=== PATIENT | male | born 1960 | race American Indian/Alaskan Native ===

== ENCOUNTER 2018-04-29 12:06 | Emergency (ER) | payer OTHER ==
[2018-04-29 12:09] VITALS: BMI 21.9
[2018-04-29] MEDS ORDERED: Sodium Chloride 0.9% 1,000 ML IV ONE (12:10)
[2018-04-29 12:19] LABS: BASO % 0.6 % (0.0-2.0); EOS % 0.9 % (0.0-4.0); HEMOGLOBIN 10.7 g/dL (12.0-18.0); LYMPH # 1.2 K/uL (1.0-4.3); LYMPH % 21.5 % (20.0-40.0); MEAN CELL VOLUME 94.3 fL (80.0-94.0); MEAN CORPUSCULAR HEMOGLOBIN 32.4 pg (27.0-31.0); MEAN CORPUSCULAR HGB CONC 34.4 g/dL (33.0-37.0); MONO # 0.4 K/uL (0.0-0.8); MONO % 6.3 % (0.0-10.0); NEUT % 70.7 % (50.0-75.0); RBC 3.31 Mil/uL (4.40-5.90); RED CELL DISTRIBUTION WIDTH 13.9 % (11.5-14.5); WHITE BLOOD COUNT 5.7 K/uL (4.8-10.8)
[2018-04-29] MEDS ORDERED: Morphine 4 MG/ML VIAL ONE ×2 (12:20→14:45)
--- NOTE | 2018-04-29 12:33 | C.PDOC ---
History Of Present Illness 57 y/o male brought in by ambulance for evaluation of right rib pain s/p fall that occurred just prior to arrival. 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 Patient was walking into a truck with a susanne when the truck mistakenly pulled out, causing patient to fall approximately 4.5 feet, landing on the right side of his trunk on top of the plate. He is now complaining of right-sided pain ( including the right side of neck) and difficulty breathing. Otherwise he denies any head trauma, LOC, dizziness, weakness, numbness, or other injuries. - HPI Time Seen by Provider: 04/29/18 12:09 Chief Complaint (Nursing): Trauma History Per: Patient History/Exam Limitations: no limitations Injury Occurred (Timing): Just Before Arrival Additional History Per: EMS - Fall Fall:Prior To Injury: Slipped (fell from loading dock) Past Medical History Reviewed: Historical Data, Nursing Documentation, Vital Signs Vital Signs: Last Vital Signs Temp 98.3 F 04/29/18 14:44 Pulse 65 04/29/18 14:44 Resp 18 04/29/18 14:44 BP 165/89 H 04/29/18 14:44 Pulse Ox 98 04/29/18 15:07 - Medical History PMH: No Chronic Diseases Surgical History: No Surg Hx Family History: States: No Known Family Hx - Social History Hx Tobacco Use: Yes Hx Alcohol Use: No Hx Substance Use: No - Immunization History Hx Tetanus Toxoid Vaccination: No Hx Influenza Vaccination: No Hx Pneumococcal Vaccination: No Review Of Systems Except As Marked, All Systems Reviewed And Found Negative. Constitutional: Negative for: Fever Eyes: Negative for: Vision Change Cardiovascular: Positive for: Other (right-sided rib pain). Negative for: Palpitations Respiratory: Positive for: Shortness of Breath Gastrointestinal: Positive for: Abdominal Pain (right flank pain). Negative for : Nausea, Vomiting Musculoskeletal: Positive for: Neck Pain (right-sided) Skin: Negative for: Lesions Neurological: Negative for: Weakness, Numbness, Incoordination, Change in Speech , Headache, Dizziness, Other (LOC) Physical Exam - Physical Exam Appears: Non-toxic, In Acute Distress (Visibly in pain) Skin: Warm, Dry, No Rash Head: Normacephalic, No Swelling, No Laceration Eye(s): bilateral: Normal Inspection, PERRL, EOMI Oral Mucosa: Moist Neck: No Midline Cervical Tenderness, Paracervical Tenderness (right-sided), Supple Chest: Symmetrical, Tenderness (to right lower ribs) Cardiovascular: Rhythm Regular, No Murmur Respiratory: Normal Breath Sounds, No Rales, No Rhonchi, No Wheezing Gastrointestinal/Abdominal: Soft, No Tenderness, No Distention Back: Normal Inspection (with no ecchymosis, abrasions, or swelling), No Vertebral Tenderness, No Decreased ROM, Paraspinal Tenderness (along the entire right side of back) Extremity: Right: Other (Bruising and abrasions over the right knee), Bilateral : Normal Color And Temperature, Normal ROM Pulses: Left Radial: Normal, Right Radial: Normal, Left Dorsalis Pedis: Normal, Right Dorsalis Pedis: Normal Neurological/Psych: Oriented x3, Normal Speech, Normal Cranial Nerves, Normal Motor, Normal Sensation, Other (No focal deficits) ED Course And Treatment - Laboratory Results Result Diagrams: 04/29/18 12:16 04/29/18 12:16 O2 Sat by Pulse Oximetry: 98 (RA) Pulse Ox Interpretation: Normal - Radiology CXR: Interpreted by Me, Viewed By Fl CXR Interpretation: Yes: No Acute Disease. No: Pnemothorax - CT Scan/US Head CT Other Rad Studies (CT/US): Read By Radiologist, Radiology Report Reviewed CT/US Interpretation: FINDINGS: HEMORRHAGE: No intracranial hemorrhage. BRAIN : No mass effect or edema. No atrophy or chronic microvascular ischemic changes. VENTRICLES: Unremarkable. No hydrocephalus. CALVARIUM: Unremarkable. PARANASAL SINUSES: Chronic ethmoid sinusitis. Right maxillary antrochoanal polyp. MASTOID AIR CELLS: Unremarkable as visualized. No inflammatory changes. OTHER FINDINGS: None. IMPRESSION: No intracranial hemorrhage. Incidental right antrochoanal polyp and chronic ethmoid sinusitis. C-spine CT Other Rad Studies (CT/US): Read By Radiologist, Radiology Report Reviewed CT/US Interpretation: FINDINGS: VERTEBRAE: The vertebral bodies are maintained in height. Normal alignment is maintained. The atlantoaxial articulation and odontoid process are intact. DISCS/SPINAL CANAL/NEURAL FORAMINA: Mild narrowing of the C4-5 intervertebral disc space with minimal endplate sclerosis consistent with degenerative disc disease. Remaining intervertebral discs are maintained in height. PARASPINAL SOFT TISSUES: Unremarkable. OTHER FINDINGS: None. IMPRESSION: No fracture/ dislocation. Mild degenerative disc disease at C4-5. CT abd/chest/pelvis Other Rad Studies (CT/US): Read By Radiologist, Radiology Report Reviewed CT/US Interpretation: FINDINGS: CT CHEST WITH CONTRAST: LUNGS: Minimal centrilobular pulmonary emphysema. Dependent atelectasis at lung bases. No pulmonary infiltrate. No pulmonary mass. MEDIASTINUM: Unremarkable. Normal caliber aorta and pulmonary arterial trunk. No aortic dissection. Normal size heart. LYMPH NODES: Unremarkable. PLEURA: Unremarkable. No pneumothorax. No pleural fluid. BONES: Nondisplaced or minimally displaced fractures right 3rd through 8th ribs laterally. OTHER FINDINGS: None. CT ABDOMEN AND PELVIS: LIVER: Unremarkable. No gross lesion or ductal dilatation. GALLBLADDER AND BILE DUCTS: Unremarkable. PANCREAS: Unremarkable. No gross lesion or ductal dilatation. SPLEEN: Unremarkable. ADRENALS: Unremarkable. No mass. KIDNEYS AND URETERS: Unremarkable. No hydronephrosis. No solid mass. VASCULATURE: Unremarkable. No aortic aneurysm. BOWEL: Unremarkable. No obstruction. No gross mural thickening. APPENDIX: Not identified. PERITONEUM: Unremarkable. No free fluid. No free air. LYMPH NODES: Unremarkable. No enlarged lymph nodes. BLADDER: Unremarkable. REPRODUCTIVE: Normal prostate. BONES: No acute fracture. OTHER FINDINGS: None. IMPRESSION: Multiple right rib fractures, including the 3rd through 8th ribs laterally. No evidence of flail chest. No pneumothorax or hemothorax. No intra-abdominal visceral injury. Medical Decision Making Medical Decision Making: Impression: Right-sided pain s/p trauma Plan: * CMP * Urine drug screen * CBC * PTT/PT * Urinalysis * Chest x-ray * X-ray right knee * CT Head w/o contrast * CT C-spine w/o contrast * CT Chest/Abd/Pelvis with IV contrast * IV fluids * IV Morphine, 4 mg Progress/Updates: Disposition Counseled Patient/Family Regarding: Studies Performed, Diagnosis, Need For Followup, Rx Given - Disposition Referrals: [facility] [Outside] Disposition: HOME/ ROUTINE Disposition Time: 15:20 Condition: STABLE Additional Instructions: Follow up with your doctor or our clinic. Take pain medications as needed. Don't work, nor travel while taking Percocet. Us the incentive spirometry as indicated. Prescriptions: Ibuprofen [Motrin] 1 tab PO TID PRN #30 tab PRN Reason: Pain oxyCODONE/Acetaminophen [Percocet 5/325 mg Tab] 1 tab PO QID PRN #20 tab PRN Reason: Pain Instructions: Rib Fracture (DC) Forms: [facility] (Sinhala), General Discharge Instructions, Work Excuse - POA Present On Arrival: None - Clinical Impression Clinical Impression: Multiple fractures of ribs of right side - Scribe Statement The provider has reviewed the documentation as recorded by the Scribe (Frieda Irving) Provider Attestation: All medical record entries made by the Scribe were at my direction and personally dictated by me. I have reviewed the chart and agree that the record accurately reflects my personal performance of the history, physical exam, medical decision making, and the department course for this patient. I have also personally directed, reviewed, and agree with the discharge instructions and disposition.
[2018-04-29 12:34] LABS: ALB/GLOB RATIO 1.5 (1.0-2.1); ALBUMIN 4.5 g/dL (3.5-5.0); ALT/SGPT 23 U/L (21-72); AST/SGOT 28 U/L (17-59); BLOOD UREA NITROGEN 18 mg/dL (9-20); CALCIUM 9.3 mg/dl (8.6-10.4); GFR AFRICAN-AMERICAN > 60; GFR NON-AFRICAN AMERICAN > 60
--- NOTE | 2018-04-29 12:51 | RAD ---
Date of service: 04/29/2018 PROCEDURE: CHEST RADIOGRAPH, 1 VIEW HISTORY: trauma COMPARISON: None available. FINDINGS: LUNGS: The lungs are well inflated and clear. PLEURA: No pneumothorax or pleural fluid seen. CARDIOVASCULAR: There is mild cardiomegaly. OSSEOUS STRUCTURES: No significant abnormalities. VISUALIZED UPPER ABDOMEN: Normal. OTHER FINDINGS: None. IMPRESSION: No acute findings.
[2018-04-29] MEDS ORDERED: Iodixanol 320 MG/ML 100 ML BOTTLE IV ONE (13:19)
--- NOTE | 2018-04-29 14:24 | CT ---
Date of service: 04/29/2018 PROCEDURE: CT HEAD WITHOUT CONTRAST. HISTORY: R/O Bleed COMPARISON: None available. TECHNIQUE: Axial computed tomography images were obtained through the head/brain without intravenous contrast. Radiation dose: Total exam DLP = 871.04 mGy-cm. This CT exam was performed using one or more of the following dose reduction techniques: Automated exposure control, adjustment of the mA and/or kV according to patient size, and/or use of iterative reconstruction technique. FINDINGS: HEMORRHAGE: No intracranial hemorrhage. BRAIN: No mass effect or edema. No atrophy or chronic microvascular ischemic changes. VENTRICLES: Unremarkable. No hydrocephalus. CALVARIUM: Unremarkable. PARANASAL SINUSES: Chronic ethmoid sinusitis. Right maxillary antrochoanal polyp. MASTOID AIR CELLS: Unremarkable as visualized. No inflammatory changes. OTHER FINDINGS: None. IMPRESSION: No intracranial hemorrhage. Incidental right antrochoanal polyp and chronic ethmoid sinusitis.
--- NOTE | 2018-04-29 14:28 | CT ---
Date of service: 04/29/2018 PROCEDURE: CT Cervical Spine without contrast HISTORY: trauma COMPARISON: None available. TECHNIQUE: Axial computed tomography images were obtained of the cervical spine without the use of intravenous contrast. Coronal and sagittal reformatted images were created and reviewed. Radiation dose: Total exam DLP = 550.31 mGy-cm. This CT exam was performed using one or more of the following dose reduction techniques: Automated exposure control, adjustment of the mA and/or kV according to patient size, and/or use of iterative reconstruction technique. FINDINGS: VERTEBRAE: The vertebral bodies are maintained in height. Normal alignment is maintained. The atlantoaxial articulation and odontoid process are intact. DISCS/SPINAL CANAL/NEURAL FORAMINA: Mild narrowing of the C4-5 intervertebral disc space with minimal endplate sclerosis consistent with degenerative disc disease. Remaining intervertebral discs are maintained in height. PARASPINAL SOFT TISSUES: Unremarkable. OTHER FINDINGS: None. IMPRESSION: No fracture/ dislocation. Mild degenerative disc disease at C4-5.
[2018-04-29 14:45] VITALS: TEMP 98.3
[2018-04-29 14:48] LABS: SQUAMOUS EPITHIAL 1 /hpf (0-5); URINE BILIRUBIN NEGATIVE (NEGATIVE); URINE BLOOD NEGATIVE (NEGATIVE); URINE CLARITY Clear (Clear); URINE COLOR Yellow (YELLOW); URINE GLUCOSE (UA) NORMAL (Normal); URINE LEUKOCYTE ESTERASE NEG Leu/uL (Negative); URINE PROTEIN NEGATIVE (NEGATIVE)
[2018-04-29 14:54] VITALS: O2SAT 98
--- NOTE | 2018-04-29 15:05 | CT ---
Date of service: 04/29/2018 PROCEDURE: CT Chest, Abdomen and Pelvis with intravenous contrast HISTORY: fall from 5 feet COMPARISON: None available. TECHNIQUE: IV dose administered: 100 mL Visipaque 320 Radiation dose: Total exam DLP = 498.58 mGy-cm. This CT exam was performed using one or more of the following dose reduction techniques: Automated exposure control, adjustment of the mA and/or kV according to patient size, and/or use of iterative reconstruction technique. FINDINGS: CT CHEST WITH CONTRAST: LUNGS: Minimal centrilobular pulmonary emphysema. Dependent atelectasis at lung bases. No pulmonary infiltrate. No pulmonary mass. MEDIASTINUM: Unremarkable. Normal caliber aorta and pulmonary arterial trunk. No aortic dissection. Normal size heart. LYMPH NODES: Unremarkable. PLEURA: Unremarkable. No pneumothorax. No pleural fluid. BONES: Nondisplaced or minimally displaced fractures right 3rd through 8th ribs laterally. OTHER FINDINGS: None. CT ABDOMEN AND PELVIS: LIVER: Unremarkable. No gross lesion or ductal dilatation. GALLBLADDER AND BILE DUCTS: Unremarkable. PANCREAS: Unremarkable. No gross lesion or ductal dilatation. SPLEEN: Unremarkable. ADRENALS: Unremarkable. No mass. KIDNEYS AND URETERS: Unremarkable. No hydronephrosis. No solid mass. VASCULATURE: Unremarkable. No aortic aneurysm. BOWEL: Unremarkable. No obstruction. No gross mural thickening. APPENDIX: Not identified PERITONEUM: Unremarkable. No free fluid. No free air. LYMPH NODES: Unremarkable. No enlarged lymph nodes. BLADDER: Unremarkable. REPRODUCTIVE: Normal prostate BONES: No acute fracture. OTHER FINDINGS: None. IMPRESSION: Multiple right rib fractures, including the 3rd through 8th ribs laterally. No evidence of flail chest. No pneumothorax or hemothorax. No intra-abdominal visceral injury.
[2018-04-29 15:13] LABS: BARBITURATES, UR NEGATIVE (NEGATIVE); BENZODIAZEPINES, UR NEGATIVE (NEGATIVE)
--- NOTE | 2018-04-29 15:22 | RAD ---
Date of service: 04/29/2018 PROCEDURE: Right Knee Radiographs. HISTORY: fall COMPARISON: None. FINDINGS: BONES: Bone alignment and mineralization are normal. There is no acute displaced fracture or bone destruction. JOINTS: Normal. No osteoarthritis. JOINT EFFUSION: There is a small suprapatellar joint effusion. OTHER FINDINGS: None. IMPRESSION: No acute fracture or dislocation.
[2018-04-29 15:32] LABS: PHENCYCLIDINE, UR NEGATIVE (NEGATIVE)
[2018-04-29 15:52] VITALS: BP 149/85; PULSE 79; RESP 16
[2018-04-29 16:20] LABS: OPIATES, UR POSITIVE (NEGATIVE)
== END 2018-04-29 15:51 | disposition home or self-care (01) ==
LOC: C.ER 12:06
DX: S22.41XA Multiple fractures of ribs, right side, initial encounter for closed fracture (principal); W01.0XXA Fall on same level from slipping, tripping and stumbling without subsequent striking against object, initial encounter; Z72.0 Tobacco use
CPT/HCPCS: 70450; 71045; 71260; 72125; 73562; 74177; 80053; 80324; 80345; 80346; 80349; 80353; 80358; 80361; 81001; 83992; 85025; 96361; 96374; 96376; 99285; J2270; J7030; Q9967